=== PATIENT | male | born 1980 | race Two or more races ===

== ENCOUNTER 2021-08-28 18:57 | Emergency (ER) | payer SELFPAY ==
[2021-08-28] MEDS: cloNIDine 0.1 MG Tab PO STA (19:29)
[2021-08-28] MEDS: hydrALAZINE 20 MG/ML SDV IM STA ×2 (19:29)
--- NOTE | 2021-08-28 19:35 | EDM.PDOC ---
ED HPI GENERAL MEDICAL PROBLEM - General Stated Complaint: HEART FLUTTERING Time Seen by Provider: 08/28/21 19:45 Source of Information: Reports: Patient History Limitations: Reports: No Limitations - History of Present Illness INITIAL COMMENTS - FREE TEXT/NARRATIVE: Patient presented to the ED because o palpitation and elevated BP. Denies having any chest pain, dyspnea, nausea or vomiting. He has a history of HTN and quit taking his BP meds for years. - Related Data Allergies Allergy/AdvReac Type Severity Reaction Status Date / Time No Known Allergies Allergy Verified 08/28/21 19:23 Home Meds: Home Meds amLODIPine Besylate [Norvasc] 10 mg PO DAILY #30 tablet 08/28/21 [Rx] ED ROS GENERAL - Review of Systems Review Of Systems: See Below Constitutional: Reports: No Symptoms HEENT: Reports: No Symptoms Respiratory: Reports: No Symptoms Cardiovascular: Reports: No Symptoms Endocrine: Reports: No Symptoms GI/Abdominal: Reports: No Symptoms : Reports: No Symptoms Musculoskeletal: Reports: No Symptoms Skin: Reports: No Symptoms Neurological: Reports: No Symptoms Psychiatric: Reports: No Symptoms Hematologic/Lymphatic: Reports: No Symptoms ED EXAM, GENERAL - Physical Exam Exam: See Below Exam Limited By: No Limitations General Appearance: Alert, No Apparent Distress Eye Exam: Bilateral Eye: PERRL Ears: Normal External Exam, Normal Canal Nose: Normal Inspection, Normal Mucosa, No Blood Throat/Mouth: Normal Inspection, Normal Lips, Normal Teeth Head: Atraumatic, Normocephalic Neck: Normal Inspection, Supple, Non-Tender, Full Range of Motion Respiratory/Chest: No Respiratory Distress, Lungs Clear, Normal Breath Sounds, No Accessory Muscle Use, Chest Non-Tender Cardiovascular: Normal Peripheral Pulses, Regular Rate, Rhythm, No Edema, No Gallop, No JVD, No Murmur, No Rub GI/Abdominal: Normal Bowel Sounds, Soft, Non-Tender, No Organomegaly, No Distention, No Abnormal Bruit Back Exam: Normal Inspection, Full Range of Motion Extremities: Normal Inspection, Normal Range of Motion, Non-Tender, No Pedal Edema, Normal Capillary Refill Neurological: Alert, Oriented, CN II-XII Intact, Normal Cognition, Normal Gait, Normal Reflexes, No Motor/Sensory Deficits Psychiatric: Normal Affect, Normal Mood Skin Exam: Warm #1 Interpretation EKG Date: 11/30/21 Time: 07:14 Rhythm: NSR Rate (Beats/Min): 74 [place]: Normal P-Wave: Present QRS: Normal ST-T: Normal QT: Normal MO/PQ Interval: 74 Comparison: NA - No Prior EKG EKG Interpretation Comments: NSR Course - Vital Signs Text/Narrative:: EKG result was reviewed and discussed with patient Hydralazine 10 mg IM x1 Clonidine 0.2 mg PO not given Last Recorded V/S: Last Vital Signs Temp 36.6 C 08/28/21 19:36 Pulse 74 08/28/21 19:36 Resp 11 L 08/28/21 19:36 BP 158/100 H 08/28/21 19:36 Pulse Ox 96 08/28/21 19:36 - Orders/Labs/Meds Meds: Medications Discontinued Medications Generic Name Dose Route Start Last Admin Trade Name Quanq PRN Reason Stop Dose Admin Clonidine HCl 0.2 mg 08/28/21 19:12 08/28/21 19:29 Clonidine 0.1 Mg Tab PO 08/28/21 19:13 Not Given NOW STA Hydralazine HCl 20 mg 08/28/21 19:12 08/28/21 19:29 Hydralazine 20 Mg/Ml Sdv IM 08/28/21 19:13 Not Given NOW STA Hydralazine HCl 10 mg 08/28/21 19:27 08/28/21 19:29 Hydralazine 20 Mg/Ml Sdv IM 08/28/21 19:28 10 mg NOW STA Administration Departure - Departure Time of Disposition: 07:45 Disposition: Home, Self-Care 01 Condition: Good Clinical Impression: Palpitations, HTN (hypertension) Prescriptions: amLODIPine Besylate [Norvasc] 10 mg PO DAILY #30 tablet Instructions: Hypertension, Adult, [id number], Palpitations, [id number] Referrals: PCP,Not In Area [Primary Care Provider] - Forms: ED Return to Work/School Form Additional Instructions: Please read discharge instructions on palpitations and hypertension Low salt, low fat diet Weight loss Amlodipine 10 mg daily for high blood pressure Take less caffeine, alcohol, and nicotine. Follow up with your doctor after 1 week
== END 2021-08-28 20:05 | disposition home or self-care (01) ==
LOC: FB.ED 18:57
DX: I10 Essential (primary) hypertension (principal); R00.2 Palpitations
CPT/HCPCS: 93005; 96372; 99284-25; J0360

== ENCOUNTER 2021-09-19 09:53 | Emergency (ER) | payer SELFPAY ==
--- NOTE | 2021-09-19 10:06 | EDM.PDOC ---
ED HPI GENERAL MEDICAL PROBLEM - General Stated Complaint: CHEST PAIN Time Seen by Provider: 09/19/21 10:01 Source of Information: Reports: Patient History Limitations: Reports: No Limitations - History of Present Illness INITIAL COMMENTS - FREE TEXT/NARRATIVE: 41-year-old male who states that he had onset of left-sided chest pain a few days ago. 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 He states that initially the pain came and went over the next line until 4:30 PM, 09/18/2021, when he developed the left-sided chest pain again and it radiated down his left arm. He reports that he took some Aleve for the pain and it seemed to "dull it down" but did not alleviate it. The pain has been continually present since 4:30 PM yesterday and seemed to be worse today. He rated the pain as a 9/10 when he arrived. He initially went to the walk-in clinic and was sent from the walk-in clinic to the emergency department for evaluation. He has had no nausea or vomiting. No difficulty breathing. He has had some nasal congestion, throat pain and cough for the past 3 weeks. He denied any exacerbating or alleviating factors for this chest pain to me. The pain came on at rest when he was getting off of work and it seemed to get worse when he rested more. He has been seen in this emergency department about a month ago secondary to elevated blood pressure and was placed on amlodipine. He has yet to establish with a primary provider. There are no other associated signs or symptoms. There are no other modifying factors. 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 Social & Family History - Tobacco Use Tobacco Use Status *Q: Former Tobacco User (Quit smoking 3 weeks ago.) - Caffeine Use Caffeine Use: Reports: Coffee, Energy Drinks, Soda - Alcohol Use Alcohol Use History: No - Living Situation & Occupation Occupation: Employed (Works at [employer]. Recently moved here from [place].) ED ROS GENERAL - Review of Systems Review Of Systems: See Below Constitutional: Denies: Fever, Chills HEENT: Reports: Throat Pain (3 weeks.), Other (Nasal congestion 3 weeks.). Denies: Ear Pain Respiratory: Reports: Cough (3 weeks). Denies: Shortness of Breath Cardiovascular: Reports: Chest Pain. Denies: Edema, Palpitations Endocrine: Reports: Fatigue GI/Abdominal: Denies: Abdominal Pain, Nausea, Vomiting : Denies: Dysuria, Hematuria Musculoskeletal: Reports: Arm Pain (Left arm pain). Denies: Neck Pain, Shoulder Pain, Back Pain Skin: Denies: Diaphoresis, Rash Neurological: Denies: Dizziness, Headache Psychiatric: Reports: Anxiety Hematologic/Lymphatic: Denies: Easy Bleeding, Easy Bruising Immunologic: Reports: Other (Patient has been fully vaccinated against Covid with a booster 2 months ago.) ED EXAM, GENERAL - Physical Exam Exam: See Below Exam Limited By: No Limitations General Appearance: Alert, Anxious, Moderate Distress (Appears in some discomfort.), Obese Eye Exam: Bilateral Eye: EOMI, Normal Inspection (Sclera are anicteric), PERRL Ears: Normal External Exam, Hearing Grossly Normal Ear Exam: Bilateral Ear: Auricle Normal Nose: Normal Inspection, Normal Mucosa, No Blood Throat/Mouth: Normal Inspection, Normal Lips, Normal Oropharynx, Normal Voice, No Airway Compromise Head: Atraumatic, Normocephalic Neck: Normal Inspection, Supple, Non-Tender, Full Range of Motion Respiratory/Chest: No Respiratory Distress, Lungs Clear, Normal Breath Sounds, No Accessory Muscle Use, Other (Tender to palpation over the left anterior chest and this does exacerbate the pain that he is having) Cardiovascular: Normal Peripheral Pulses, Regular Rate, Rhythm, No Murmur Peripheral Pulses: 2+: Radial (L), Radial (R), Dorsalis Pedis (L), Dorsalis Pedis (R) GI/Abdominal: Normal Bowel Sounds, Soft, Non-Tender, No Mass Back Exam: Normal Inspection Extremities: Normal Inspection, Normal Range of Motion, Non-Tender, No Pedal Edema, Normal Capillary Refill Neurological: Alert, Oriented, CN II-XII Intact, Normal Cognition, No Motor/Sensory Deficits Psychiatric: Anxious Skin Exam: Warm, Dry, Intact, Normal Color, No Rash #1 Interpretation EKG Date: 09/19/21 Time: 10:01 Rhythm: NSR Rate (Beats/Min): 84 [place]: LAD-Left [place] Deviation P-Wave: Present QRS: Other (LAFB) ST-T: Normal QT: Normal Comparison: No Change (No change from an EKG performed on 08/28/2021.) Course - Vital Signs Last Recorded V/S: Last Vital Signs Temp 36.7 C 09/19/21 10:06 Pulse 82 09/19/21 12:00 Resp 15 09/19/21 12:00 BP 125/81 09/19/21 12:00 Pulse Ox 95 09/19/21 12:00 - Orders/Labs/Meds Orders: Active Orders 24 hr Category Date Time Status Chest 1V Frontal [CR] Stat Exams 09/19/21 10:23 Taken Sodium Chloride 0.9% [Saline Flush] Med 09/19/21 10:21 Active 10 ml FLUSH ASDIRECTED PRN Peripheral IV Insertion Adult [OM.PC] Routine Oth 09/19/21 10:21 Ordered EKG 12 Lead [EK] Routine Ther 09/19/21 10:21 Ordered Medication Orders Sodium Chloride (Sodium Chloride 0.9% 10 Ml Syringe) 10 ml FLUSH ASDIRECTED PRN PRN Reason: Keep Vein Open Last Admin: 09/19/21 10:28 Dose: 10 ml Documented by: BEN Labs: Laboratory Tests 09/19/21 09/19/21 09/19/21 Range/Units 10:20 10:20 10:20 WBC 4.5 (3.2-10.1) x10-3/uL RBC 5.40 (3.90-5.90) x10(6)uL Hgb 15.6 (12.9-17.7) g/dL Hct 46.7 (38.3-50.1) % MCV 86.4 (80.8-98.7) fL MCH 28.9 (27.0-33.3) pg MCHC 33.4 (28.7-35.3) g/dL RDW 13.6 (12.4-15.0) % Plt Count 215 (117-477) x10(3)uL MPV 8.7 (6.7-11.0) fL Neut % (Auto) 46.9 (40.3-71.8) % Lymph % (Auto) 42.4 (15.8-45.3) % [place] % (Auto) 8.0 (5.5-15.2) % Eos % (Auto) 2.1 (0.1-6.8) % Baso % (Auto) 0.6 (0.3-3.8) % Neut # (Auto) 2.1 (1.7-6.9) x10-3/uL Lymph # (Auto) 1.9 (0.5-4.5) x10-3/uL [place] # (Auto) 0.4 (0.0-1.2) x10-3/uL Eos # (Auto) 0.1 (0.0-0.6) x10-3/uL Baso # (Auto) 0.0 (0.0-0.3) x10-3/uL D-Dimer, Quantitative < 0.19 (0.0-0.59) mg/LFEU Sodium 140 (135-145) mmol/L Potassium 3.8 (3.5-5.3) mmol/L Chloride 104 (100-110) mmol/L Carbon Dioxide 28 (21-32) mmol/L BUN 18 (7-18) mg/dL Creatinine 1.1 (0.70-1.30) mg/dL Est Cr Clr Drug Dosing 78.94 mL/min Estimated GFR (MDRD) > 60 (>60) BUN/Creatinine Ratio 16.4 (9-20) Glucose 157 H (80-116) mg/dL Calcium 8.6 (8.6-10.2) mg/dL Magnesium 2.0 (1.8-2.5) mg/dL Total Bilirubin 0.5 (0.1-1.3) mg/dL AST 26 H (5-25) IU/L ALT 76 H (12-36) U/L Alkaline Phosphatase 69 (56-112) IU/L Troponin I (4.0-60.3) pg/mL Total Protein 7.3 (6.0-8.0) g/dL Albumin 3.6 (3.5-5.2) g/dL Globulin 3.7 g/dL Albumin/Globulin Ratio 1.0 SARS-CoV-2 RNA (SHOAIB) (NEGATIVE) 09/19/21 09/19/21 09/19/21 Range/Units 10:20 11:27 12:48 WBC (3.2-10.1) x10-3/uL RBC (3.90-5.90) x10(6)uL Hgb (12.9-17.7) g/dL Hct (38.3-50.1) % MCV (80.8-98.7) fL MCH (27.0-33.3) pg MCHC (28.7-35.3) g/dL RDW (12.4-15.0) % Plt Count (117-477) x10(3)uL MPV (6.7-11.0) fL Neut % (Auto) (40.3-71.8) % Lymph % (Auto) (15.8-45.3) % [place] % (Auto) (5.5-15.2) % Eos % (Auto) (0.1-6.8) % Baso % (Auto) (0.3-3.8) % Neut # (Auto) (1.7-6.9) x10-3/uL Lymph # (Auto) (0.5-4.5) x10-3/uL [place] # (Auto) (0.0-1.2) x10-3/uL Eos # (Auto) (0.0-0.6) x10-3/uL Baso # (Auto) (0.0-0.3) x10-3/uL D-Dimer, Quantitative (0.0-0.59) mg/LFEU Sodium (135-145) mmol/L Potassium (3.5-5.3) mmol/L Chloride (100-110) mmol/L Carbon Dioxide (21-32) mmol/L BUN (7-18) mg/dL Creatinine (0.70-1.30) mg/dL Est Cr Clr Drug Dosing mL/min Estimated GFR (MDRD) (>60) BUN/Creatinine Ratio (9-20) Glucose (80-116) mg/dL Calcium (8.6-10.2) mg/dL Magnesium (1.8-2.5) mg/dL Total Bilirubin (0.1-1.3) mg/dL AST (5-25) IU/L ALT (12-36) U/L Alkaline Phosphatase (56-112) IU/L Troponin I 6.6 7.1 (4.0-60.3) pg/mL Total Protein (6.0-8.0) g/dL Albumin (3.5-5.2) g/dL Globulin g/dL Albumin/Globulin Ratio SARS-CoV-2 RNA (SHOAIB) Negative (NEGATIVE) Meds: Medications Generic Name Dose Route Start Last Admin Trade Name Freq PRN Reason Stop Dose Admin Sodium Chloride 10 ml 09/19/21 10:21 09/19/21 10:28 Sodium Chloride 0.9% 10 Ml Syringe FLUSH 10 ml ASDIRECTED PRN Administration Keep Vein Open Discontinued Medications Generic Name Dose Route Start Last Admin Trade Name Freolena PRN Reason Stop Dose Admin Ketorolac Tromethamine 30 mg 09/19/21 10:24 09/19/21 10:28 Ketorolac 30 Mg/Ml Sdv IVPUSH 09/19/21 10:25 30 mg ONETIME ONE Administration - Radiology Interpretation Free Text/Narrative:: Portable chest x-ray showed no acute disease per my read. - Re-Assessments/Exams Free Text/Narrative Re-Assessment/Exam: 09/19/21 11:05: White blood cell count is 4.5. Hemoglobin is 15.6. Platelet count is normal. Sodium is 140. Potassium is 3.8. Bicarbonate is normal. BUN is 18 and creatinine is 1.1. Glucose is 157. A magnesium was normal. A d-dimer was less than 0.19. AST and ALT were mildly elevated. Troponin was 6.6. Chest x-ray showed no acute disease. The patient had received Toradol 30 mg IV about 45 minutes ago and he is currently rating his pain as a 6-7/10. Patient's lab tests are reassuring. They are pointing away from any cardiac etiology and also away from any pulmonary emboli. With his mildly low white blood cell count and his mildly elevated AST and ALT and with his sore throat, cough and nasal congestion, I am concerned that he could have Covid infection. I will check for this. In regard to his chest pain, I will repeat the patient troponin at the two-hour level and if this is negative, I feel that this pretty much rules out cardiac etiology for his pain. We will continue to monitor the patient for now. . 09/19/21 13:11: Repeat troponin is normal. The patient feels much better now. His pain is down to a 4/10. With the negative troponin 2 now and really with the negative troponin after hours of chest pain, I feel NE has been ruled out and cardiac etiology for this pain is he can take ibuprofen or Aleve and he can take Tylenol as needed for the pain. He was again advised that he needs to establish with a primary provider and I have told him he needs to do this by next week. Precautions and reasons for return to the emergency department were discussed with the patient while he was in the emergency department over detailed in the patient's discharge instructions. Departure - Departure Time of Disposition: 13:15 Disposition: Home, Self-Care 01 Condition: Good Clinical Impression: Chest pain, non-cardiac, Prediabetes, Hyperglycemia GERD (gastroesophageal reflux disease) Qualifiers: Esophagitis presence: esophagitis presence not specified Qualified Code(s): K21.9 - Gastro-esophageal reflux disease without esophagitis Prescriptions: Omeprazole 40 mg PO ACBREAKFAST #30 cap.sr Instructions: Nonspecific Chest Pain, Adult, [id number], Gastroesophageal Reflux Disease, Adult, [id number] Referrals: PCP,None [Primary Care Provider] - Additional Instructions: All of your blood tests were reassuring. Your blood glucose was however somewhat elevated and this could mean that you aren't developing diabetes mellitus. Your blood pressure appeared to be well controlled in the emergency department. Your chest x-ray was normal. Your EKG showed no evidence of a heart related issue and was unchanged from previous. I am unsure why you for having the chest pain but it does not appear to be a heart related issue. This could be due to acid reflux into your esophagus and I am placing you on omeprazole to treat this. I sent this prescription electronically to your pharmacy. You will need to establish with a primary provider by next week to follow these issues. Avoid any concentrated sweets. Eat a heart healthy diet. Increase your fluid intake. You can take ibuprofen or Aleve as needed for the pain. You can also take Tylenol for the pain. Back to the emergency department for severe weakness, trouble breathing, unrelenting vomiting, increasing pains or any other concerning signs or symptoms. Sepsis Event Note (ED) - Focused Exam Vital Signs: Vital Signs Temp Pulse Resp BP Pulse Ox 09/19/21 12:00 82 15 125/81 95 09/19/21 10:38 79 13 127/76 96 09/19/21 10:06 36.7 C 88 13 136/81 96 - My Orders Last 24 Hours: My Active Orders 09/19/21 10:21 Sodium Chloride 0.9% [Saline Flush] 10 ml FLUSH ASDIRECTED PRN Peripheral IV Insertion Adult [OM.PC] Routine EKG 12 Lead [EK] Routine 09/19/21 10:23 Chest 1V Frontal [CR] Stat - Assessment/Plan Last 24 Hours: My Active Orders 09/19/21 10:21 Sodium Chloride 0.9% [Saline Flush] 10 ml FLUSH ASDIRECTED PRN Peripheral IV Insertion Adult [OM.PC] Routine EKG 12 Lead [EK] Routine 09/19/21 10:23 Chest 1V Frontal [CR] Stat
[2021-09-19] MEDS ORDERED: Sodium Chloride 0.9% 10 ML Syringe FLUSH PRN (10:21)
[2021-09-19] MEDS ORDERED: Ketorolac 30 MG/ML SDV IVPUSH ONE (10:24)
== END 2021-09-19 13:41 | disposition home or self-care (01) ==
LOC: FB.ED 09:53
DX: R07.9 Chest pain, unspecified (principal); K21.9 Gastro-esophageal reflux disease without esophagitis; R73.03 Prediabetes; R73.9 Hyperglycemia, unspecified; I10 Essential (primary) hypertension; Z79.899 Other long term (current) drug therapy; Z87.891 Personal history of nicotine dependence; Z20.822 Contact with and (suspected) exposure to COVID-19
CPT/HCPCS: 36415; 71045; 80053; 83735; 84484; 85025; 85379; 93005; 96374; 99285-25; J1885; U0002